=== PATIENT | female | born 1980 | race Hispanic/Latino ===

== ENCOUNTER 2018-03-30 18:25 | Emergency (ER) | payer SELFPAY ==
[2018-03-30 19:28] LABS: Bilirubin Negative (Negative); Blood, Urine Small (Negative); Clarity CLEAR (Clear); Glucose, Urine (Dipstick) Negative (Negative); Leukocyte Small (Negative); Nitrite Negative (Negative); Protein, Urine (Dipstick) Trace mg/dL (Neg-Trace); Specific Gravity, Urine 1.004 (1.002-1.036); pH, Urine 6.5 (5.0-9.0)
[2018-03-30 19:30] LABS: Pathc Cast-AUWi Flag 0.14 (0-2.49); Pregnancy Test - Urine (BHCG) Negative (Negative); Pregu Control Background? CLEAR/WHITE (CLR/WHITE); Pregu Control Bar Appear? YES (CONTROL BAR); Specific Gravity 1.004 (1.002-1.036)
[2018-03-30 19:35] LABS: Bacteria/HPF 4+ HPF (None Seen); Squamous Epithelial 0-3 HPF (0-3); WBC/HPF 0-3 HPF (0-3)
[2018-03-30 19:36] LABS: Hyaline Casts/LPF 0-3 HYALINE CAST LPF (0-3 Hyaline)
[2018-03-30] MEDS ORDERED: Ondansetron HCl/PF 4 MG/2 ML Vial ONE (22:01)
[2018-03-30 22:15] LABS: Hemoglobin 13.2 g/dL (12.0-16.0); Mean Corpuscular HGB CONC 34.4 g/dL (32.0-36.0); Mean Corpuscular Hemoglobin 30.7 pg (27.0-31.0); Mean Corpuscular Volume 89.2 fL (78.0-98.0); Mean Platelet Volume 7.5 fL (7.4-10.4); Platelet Count 195 thou/uL (130-400); RBC Distribution Width 11.6 % (11.5-14.5); Red Blood Cell (RBC) Count 4.29 mill/uL (4.20-5.40); White Blood Cell (WBC) Count 11.2 thou/uL (4.8-10.8)
[2018-03-30] MEDS ORDERED: Acetaminophen 500 MG TAB ONE (22:24)
[2018-03-30 22:29] LABS: ALT (SGPT) 91 U/L (8-55); AST (SGOT) 75 U/L (5-34); Alkaline Phosphatase 170 U/L (40-150); Anion Gap 13 mmol/L (10-20); BUN (Urea Nitrogen) 6 mg/dL (7.0-18.7); Bilirubin, Total 0.7 mg/dL (0.2-1.2); Calc. Creatinine Clearance 0 mL/min (70-130); Calcium 9.3 mg/dL (7.8-10.44); Carbon Dioxide 25 mmol/L (22-29); Chloride 99 mmol/L (98-107); Estimated GFR-MDRD Greater than 90; Globulin 3.3 g/dL (2.4-3.5); Glucose 120 mg/dL (70-105); Lipase 33 U/L (8-78); Potassium 3.6 mmol/L (3.5-5.1); Protein, Total 7.3 g/dL (6.0-8.3); Sodium 133 mmol/L (136-145)
[2018-03-30 22:36] LABS: Band 18 % (5-11); Lymphocytes 16 % (21-51); MDiff Complete? YES; Monocytes 15 % (0-10); Neutrophil 50 % (42-75)
[2018-03-30] MEDS ORDERED: Ibuprofen 800 MG TAB ONE (23:03)
[2018-03-30] MEDS ORDERED: cefTRIAXone\\ROCEPHIN 1 GM VIAL ONE (23:56)
[2018-03-31] MEDS ORDERED: cefTRIAXone\\ROCEPHIN 1 GM VIAL ONE (00:02)
[2018-03-31] MEDS ORDERED: Lidocaine 1% PF 5 ML VIAL ONE (00:02)
== END 2018-03-31 00:36 | disposition home or self-care (01) ==
LOC: ERS 18:25
DX: N12 Tubulo-interstitial nephritis, not specified as acute or chronic (principal)
CPT/HCPCS: 80053; 81003; 81015; 81025; 83690; 85025; 87077; 87086; 87186; 96361; 96372; 96374; 96375; J0696; J2001; J2270; J2405